=== PATIENT | male | born 1990 | race Caucasian/White ===

== ENCOUNTER 2016-11-28 14:29 | Emergency (ER) | payer OTHER ==
--- NOTE | 2016-11-28 16:08 | RAD ---
EXAM DESCRIPTION: Wrist, left 3 Views CLINICAL HISTORY: 26 years Male, injury COMPARISON: January 12, 2010 FINDINGS: 3 views of the left wrist show postoperative changes in the fourth metacarpal without apparent hardware complication. There is a small bone fragment along the dorsal aspect of the proximal carpal row which is seen only on the lateral view and does not appear acute. There is no overlying soft tissue swelling. The bones are otherwise unremarkable. The joint spaces are fairly well-maintained. No suspicious radiopaque foreign body or soft tissue gas. IMPRESSION: Small bone fragment along the dorsal aspect of the left wrist without associated soft tissue swelling, and this is likely not acute. No additional acute left wrist abnormality. If symptoms persist or worsen, CT is suggested. Electronically signed by: Isaac Oscar MD 11/28/2016 4:07 PM [employer]IFICIAL [employer] TECHNICIAN
--- NOTE | 2016-11-28 16:49 | ED.PDOC ---
History of Present Illness - General Chief Complaint: Upper Extremity Injury Stated Complaint: left wrist pain/injury Time Seen by Provider: 11/28/16 16:33 Source: patient, RN notes reviewed, Vital Signs reviewed Exam Limitations: no limitations - History of Present Illness Initial Comments: Patient is a 26 y/o male who was helping load a couch into a truck, when he tripped on a rock and the couch fell on his wrist. He now has wrist pain, severe with movement. He has a history of right wrist fracture. The pain is sharp and tolerable with ice and rest, but increases to severe with movement and palpation. Timing/Duration: 1-3 hours Severity: moderate, severe Improving Factors: cold therapy, immobilization Worsening Factors: movement Associated Symptoms: denies symptoms Allergies/Adverse Reactions: Allergies Meperidine [From Demerol HCl] Allergy (Verified 11/28/16 15:31) Morphine Allergy (Verified 11/28/16 15:31) Home Medications: Ambulatory Orders NK [NK] 11/28/16 Review of Systems - Review of Systems Constitutional: States: no symptoms reported EENTM: States: no symptoms reported Respiratory: States: no symptoms reported Cardiology: States: no symptoms reported Gastrointestinal/Abdominal: States: no symptoms reported Genitourinary: States: no symptoms reported Musculoskeletal: States: joint pain, joint swelling Skin: States: no symptoms reported Neurological: States: no symptoms reported Endocrine: States: no symptoms reported Hematologic/Lymphatic: States: no symptoms reported All other Systems: Reviewed and Negative Past Medical History (General) - Patient Medical History Hx Seizures: Yes Hx Stroke: No Hx Dementia: No Hx Asthma: No Hx of COPD: No Hx Cardiac Disorders: No Hx Congestive Heart Failure: No Hx Pacemaker: No Hx Hypertension: No Hx Thyroid Disease: No Hx Diabetes: No Hx Gastroesophageal Reflux: No Hx Renal Disease: No Hx Cancer: No Hx of HIV: No Hx Hepatitis C: No Hx MRSA: No Surgical History: other - Vaccination History Hx Tetanus, Diphtheria Vaccination: Yes Hx Influenza Vaccination: No Hx Pneumococcal Vaccination: No - Social History Hx Tobacco Use: Yes Hx Alcohol Use: Yes Hx Substance Use: No Hx Substance Use Treatment: No Hx Depression: No - Activities of Daily Living Hospice Agency (if applicable):: None - Female History Patient is a Female of Child Bearing Age (10 -59 yrs old): No Patient : No Family Medical History - Family History Mother Family History: Unknown Living Status: Still Living Physical Exam - Physical Exam General Appearance: Alert, Obvious distress - Mild distress Eye Exam: bilateral normal Ears, Nose, Throat: hearing grossly normal, normal ENT inspection Respiratory: no respiratory distress Extremity: other - Right wrist-decreased ROM with pain with movement. Pain with palpation to ulnar side of carpals. Able to move fingers, however ROM decreased. Progress - EKG/XRAY/CT XRAY: Right wrist - No acute fracture Departure - Departure Clinical Impression: Crushing injury of right wrist Qualifiers: Encounter type: initial encounter Qualifier Code: (S67.31XA) Crushing injury of right wrist, initial encounter Time of Disposition: 16:52 Disposition: Discharge to Home or Self Care Condition: Excellent Departure Forms: ED Discharge - Pt. Copy, Patient Portal Self Enrollment Instructions: DI for Crush Injury Diet: resume usual diet Referrals: Breanna Lima NP [Nurse Practitioner] - 1-2 Weeks Home Medications: Ambulatory Orders NK [NK] 11/28/16 Additional Instructions: Ibuprofen alternated with Tylenol for pain. Rest, ice, compression, elevation. Follow up in 2 weeks with physician for repeat x-rays. Follow up sooner for any concerning symptoms.
[2016-11-28 17:03] VITALS: BP 110/87; TEMP 97.5; O2SAT 98
== END 2016-11-28 17:03 | disposition home or self-care (01) ==
LOC: ER 14:29
DX: S67.31XA Crushing injury of right wrist, initial encounter (principal); Z88.6 Allergy status to analgesic agent; Z88.8 Allergy status to other drugs, medicaments and biological substances; W23.0XXA Caught, crushed, jammed, or pinched between moving objects, initial encounter

== ENCOUNTER 2019-07-29 13:22 | Emergency (ER) | payer SELFPAY ==
[2019-07-29 13:35] VITALS: TEMP 97.6
[2019-07-29] MEDS ORDERED: SODIUM CHLORIDE 0.9% 1000ML 1,000 ML IVS ONE (13:37)
--- NOTE | 2019-07-29 13:42 | ED.PDOC ---
History of Present Illness - General Chief Complaint: GI Problem Stated Complaint: rectal bleeding Time Seen by Provider: 07/29/19 13:32 - History of Present Illness Initial Comments: 28 yo M PMH Seizure disorder presents to ED c/o rectal bleeding after stool 30 minutes ago. Admits possible hemorrhoid. Denies fever chills nausea vomiting diarrhea chest pain sob diaphoresis. No change in diet rest or bladder admits smoking denies drinking admits FH DM denies FH HTN has no PMD for follow up no other c/o today. Allergies/Adverse Reactions: Allergies Meperidine [From Demerol HCl] Allergy (Verified 11/28/16 15:31) Morphine Allergy (Verified 11/28/16 15:31) Home Medications: Ambulatory Orders Docusate Sodium [Colace Cap] 100 mg PO BID PRN 5 Days #10 cap 07/29/19 Pramoxine HCl (Rectal) [Proctofoam] 1 % VA DAILY PRN #1 tube 07/29/19 Review of Systems - Review of Systems Constitutional: States: see HPI EENTM: States: see HPI Respiratory: States: see HPI Cardiology: States: see HPI Gastrointestinal/Abdominal: States: see HPI Genitourinary: States: see HPI Musculoskeletal: States: see HPI Neurological: States: see HPI Endocrine: States: see HPI Hematologic/Lymphatic: States: see HPI All other Systems: Reviewed and Negative Past Medical History (General) - Patient Medical History Hx Seizures: Yes Hx Stroke: No Hx Dementia: No Hx Asthma: No Hx of COPD: No Hx Cardiac Disorders: No Hx Congestive Heart Failure: No Hx Pacemaker: No Hx Hypertension: No Hx Thyroid Disease: No Hx Diabetes: No Hx Gastroesophageal Reflux: No Hx Renal Disease: No Hx Cancer: No Hx of HIV: No Hx Hepatitis C: No Hx MRSA: No - Vaccination History Hx Tetanus, Diphtheria Vaccination: Yes Hx Influenza Vaccination: No Hx Pneumococcal Vaccination: No - Social History Hx Tobacco Use: Yes - 2 ppd Hx Alcohol Use: Yes Hx Substance Use: No Hx Substance Use Treatment: No Hx Depression: No - Female History Patient : No Family Medical History - Family History Mother Family History: Unknown Living Status: Still Living Physical Exam - Physical Exam General Appearance: No apparent distress Eye Exam: bilateral normal Ears, Nose, Throat: normal ENT inspection Neck: non-tender, full range of motion Respiratory: normal breath sounds Cardiovascular/Chest: regular rate, rhythm Gastrointestinal/Abdominal: non tender, soft Back Exam: other - refused Extremity: normal range of motion, non-tender Neurologic: no motor/sensory deficits Progress - Progress Progress: 07/29/19 13:55 A/P-Rectal Bleeding-declined rectal exam, iv bolus cbc cmp lipase urinalysis if unremarkable d/c proctofoam colace follow up primary care 07/29/19 15:03 Laboratory Tests 07/29/19 07/29/19 07/29/19 13:49 13:49 14:45 WBC 11.7 H RBC 5.82 Hgb 18.2 H Hct 54.0 H MCV 92.9 MCH 31.2 H MCHC 33.6 RDW 13.5 Plt Count 275 MPV 8.7 Absolute Neuts (auto) 8.60 H Absolute Lymphs (auto) 1.90 Absolute Monos (auto) 1.00 H Absolute Eos (auto) 0.20 Absolute Basos (auto) 0.10 Neutrophils % 73.3 Lymphocytes % 16.0 L Monocytes % 8.2 Eosinophils % 2.0 Basophils % 0.5 Sodium 139 Potassium 4.0 Chloride 103 Carbon Dioxide 22 Anion Gap 18.0 BUN 17 Creatinine 0.89 BUN/Creatinine Ratio 19.1 Random Glucose 92 Serum Osmolality 278.7 Calcium 9.6 Total Bilirubin 1.2 H AST 24 ALT 29 Alkaline Phosphatase 60 Serum Total Protein 8.7 H Albumin 5.0 Globulin 3.7 H Albumin/Globulin Ratio 1.4 Lipase 36 Urine Color Yellow Urine Appearance Clear Urine pH 6.0 Ur Specific [place] 1.025 Urine Protein Negative Urine Glucose (UA) Negative Urine Ketones Trace Urine Blood Negative Urine Nitrite Negative Urine Bilirubin Negative Urine Urobilinogen 0.2 Ur Leukocyte Esterase Negative Urine RBC 3-5 H Urine WBC 0-1 Ur Epithelial Cells 0-1 Urine Bacteria Rare Urine Mucus Large 07/29/19 15:04 Departure - Departure Clinical Impression: Rectal bleeding Time of Disposition: 15:06 Disposition: Discharge to Home or Self Care Condition: Good Departure Forms: ED Discharge - Pt. Copy, Patient Portal Self Enrollment Instructions: DI for Gastrointestinal Bleeding Prescriptions: Docusate Sodium [Colace Cap] 100 mg PO BID PRN 5 Days #10 cap PRN Reason: Constipation Pramoxine HCl (Rectal) [Proctofoam] 1 % [place] DAILY PRN #1 tube PRN Reason: Pain Home Medications: Ambulatory Orders Docusate Sodium [Colace Cap] 100 mg PO BID PRN 5 Days #10 cap 07/29/19 Pramoxine HCl (Rectal) [Proctofoam] 1 % [place] DAILY PRN #1 tube 07/29/19
[2019-07-29 14:37] VITALS: BP 132/59; O2SAT 99
== END 2019-07-29 15:15 | disposition home or self-care (01) ==
LOC: ER 13:22
DX: K62.5 Hemorrhage of anus and rectum (principal); G40.909 Epilepsy, unspecified, not intractable, without status epilepticus; F17.200 Nicotine dependence, unspecified, uncomplicated
CPT/HCPCS: 80053; 81001; 83690; 85025; J7030